=== PATIENT | male | born 1980 | race Two or more races ===

== ENCOUNTER 2020-01-27 01:13 | Emergency (ER) | payer OTHER ==
[~2020-01-27] VITALS: Ht 177.8 cm; Wt 113.6 kg
[2020-01-27 01:32] VITALS: BP 114/64
[2020-01-27 01:34] LABS: COVID AG,FIA SOURCE NASOPHARYNGEAL
== END 2020-01-27 02:30 | disposition home or self-care (01) ==
LOC: EMS 01:13
DX: Z20.828 Contact with and (suspected) exposure to other viral communicable diseases (principal)
CPT/HCPCS: 87426